=== PATIENT | male | born 1950 | race Two or more races ===

== ENCOUNTER 2024-10-03 08:15 | Emergency (ER) | payer MEDICARE, MEDICAID, SELFPAY ==
[2024-10-03 08:16] VITALS: BMI 41.3
[2024-10-03 08:23] VITALS: BP 135/61; PULSE 69; RESP 16; TEMP 36.7; O2SAT 96
--- NOTE | 2024-10-03 08:49 | EDNOTE_ITS ---
ED Skin Abcess FB-RME/HPI General Chief complaint: Skin/Abscess/Foreign Body Stated complaint: RASH/ITCHING BUE & ABD Time Seen by Provider: 10/03/24 08:35 Arrival date/time: 10/03/24 08:15 74 year old male present to emergency room with c/o of itchy rash back, arm/labs and abdominal for 1 day. pt report possible got a reaction after cutting down a tree. LOCATION: back, abd, extremities SEVERITY: Symptoms are described as being severe with limitations on activities of daily living QUALITY: Symptoms are described as being dull or achy CONTEXT: The patient is unable to identify any inciting events. DURATION/TIMING: The symptoms started approximately one day ago and have been constant this then, and have been progressive getting worse. ASSOCIATED SYMPTOMS: The patient is unable to identify any other associated symptoms. MODIFYING FACTORS: The patient is unable to identify any alleviating or aggr avating symptoms. PERTINENT ROS: denies IVDU], [states no immunocompromising condition, denies any penetrating trauma, no fever, no unexplained nausea or vomiting, no headache, no chest pain REVIEW OF SYSTEMS: See History of Present Illness - with the exception of those mentioned in the history of present illness, all other systems reviewed and reported as negative GENERAL: In general the patient is awake, interactive, in an emergency department gurney. HEAD/EYES/EARS/NOSE/THROAT: normo-cephalic, atraumatic, mucus membranes are moist, anicteric, palpebral conjunctiva is pink, trachea is midline. CARDIOVASCULAR: regular rate and regular rhythm, no murmurs, heart sounds are not distant, strong pulses in all four extremities that are equal and symmetric bilateral upper and lower extremities, normal capillary refill. CHEST/PULMONARY: normal chest rise and fall, good air movement, clear to auscultation bilaterally, normal inspiratory to expiratory ratios without evidence of respiratory distress. NECK: No midline/Paraspinal tenderness, no step off ROM/Strenght intact No Kernig and bruzinski sign. No trauma ABDOMEN: soft, not tender, no masses appreciated BACK: normal range of motion without pain. NEUROLOGICAL: cranio-facial features are symmetric, moves all four extremities equally without obvious limitations or weakness. EXTREMITY: no tenderness to palpation over the long bones or large joints of the bilateral upper and lower extremities, no joint swelling, no joint erythema, no signs of trauma, no unilateral leg swelling and no peripheral edema. SKIN: warm, dry, well-perfused, no jaundice, + generalized hive like lesion on back, abd, upper and lower extremities no telangiectasias or petechia. PSYCH: calm, cooperative, no evidence of psychosis or agitation Related Data Previous Rx's ?Medication ?Instructions ?Recorded Sulfamethoxazole/Trimethoprim DS * 1 tab PO BID #20 ta bs 04/28/17 (BACTRIM DS *) loratadine 10 mg tablet (Claritin) 10 mg PO QDAY #20 t abs 10/03/24 prednisone 20 mg tablet 20 mg PO QDAY 3 days #3 tabs 10/03/24 Allergies Allergy/AdvReac Type Severity Reaction Status Date / Time codeine Allergy Mild SWELLS UP Verified 03/16/17 13:30 Penicillins Allergy Mild SWELLS UP Verified 03/16/17 13:30 Course Course Course Narrative: Patient presenting with urticaria.? The inciting event was likely plant .? Patient provided predisone 40mg, benadryl 25mg and pepcid 40mg? ?Following which, patient stated they felt improved.? Patient monitored for a period of 2 hours.? Discussed continuing benadryl treatments every?-6 hours.? Patient was prescribed an epipen.? Patient is to follow up with primary care provider to further discuss anaphylactic treatment and allergin testing as needed.? Return to clinic or emergency department urgently if new or worsening symptoms develop including oral swelling, difficulty breathing, chest pain, shortness of breath, worsening rash, headache, or other worrisome symptoms. ? ? Plan:?? claritin and predisone 20mg daily for 3 days, advised to check blood glucose since may increase levels. Prescribed medro dose astrid and educated Pt on indications for administration. Advised Pt on supportive therapies, including decreasing exposure to possible allergens, cold application, OTC ibuprofen as directed prn, and advancement of fluids as tolerated. Educated Pt on signs and symptoms of anaphylaxis and instructed her to report to ED should worrisome signs present.? Pt verbally expressed understanding and all questions were addressed to Pt's satisfaction. Quality Measures none Orders Category Date Time Status Blood glucose [Bedside Blood Glucose] NOW Care 10/03/24 08:36 Active DiphenhydrAMINE [Benadryl] Med 10/03/24 08:41 Discontinued 25 mg PO X1 ONE Famotidine [Pepcid] Med 10/03/24 08:41 Discontinued 40 mg PO X1 ONE predniSONE Med 10/03/24 08:41 Discontinued 40 mg PO X1 ONE Reevaluation(s) Reevaluation #1: pt is feeling better and comfortable to go home. Vital Signs Vital signs: Vital Signs Temperature 98.0 F 10/03/24 08:23 Pulse Rate 69 10/03/24 08:23 Respiratory Rate 16 10/03/24 08:23 Blood Pressure 135/61 H 10/03/24 08:23 Pulse Oximetry (%) 96 10/03/24 08:23 Oxygen Delivery Method Room Air 10/03/24 08:23 Skin / Abscess / Foreign Body Patient data External records reviewed:: [facility] previous records Clinical information provided by:: patient Social determinants that could affect healthcare access:: none Patient has the following chronic illnesses:: dm How is presenting disease/condition affected by chronic disease/condition?: uneffected by Evaluation data The following diagnostics were reviewed and interpreted by me:: other (specify) (n/a ) Lab and/or radiology exams considered but not ordered:: n/a Interpretation Summary: n/a Medications / Prescriptions Medications or Prescriptions considered but not ordered:: n/a Medication administrations:: Medication Administration History Discontinued Medications Diphenhydramine HCl (Diphenhydramine 25 Mg Capsule) 25 mg PO X1 ONE Stop: 10/03/24 08:42 Last Admin: 10/03/24 08:51 Dose: 25 mg Documented By: SHARYN Famotidine (Famotidine 20 Mg Tablet) 40 mg PO X1 ONE Stop: 10/03/24 08:42 Last Admin: 10/03/24 08:52 Dose: 40 mg Documented By: SHARYN Prednisone (Prednisone 20 Mg Tablet) 40 mg PO X1 ONE Stop: 10/03/24 08:42 Last Admin: 10/03/24 08:52 Dose: 40 mg Documented By: SHARYN as stated above Consultations Consultation(s) initiated? (list below): No Diagnosis Skin/Abscess Differential Diagnosis: urticaria, eczema and contact dermatitis Most likely diagnosis given after review of the tests above:: contact dermatitis/hives Admission Indicated Admission indicated?: not indicated Admission Request Was there a request for admission?: No Disposition Plan Disposition Plan: Discharge Discharge Attestation Discharge Attestation: The patient and all family members were given an opportunity to ask questions and understood the discharge instructions. Discharge instructions specifically effects, indications for sooner follow up or return to the emergency department, and the expected course of current diagnosis. Patient condition: Stable Discharge Plan Plan Patient Disposition: HOME (Self Care) Health Concerns: Follow with PMD as directed Take tylenol or motrin as need Return to ED if sx worsen check your blood glucose since prednisone may raise the level. Prescriptions/Referrals Prescriptions/Med Rec: New prednisone 20 mg tablet 20 mg PO QDAY 3 Days Qty: 3 0RF loratadine [Claritin] 10 mg tablet 10 mg PO QDAY Qty: 20 0RF No Action Sulfamethoxazole/Trimethoprim DS * (BACTRIM DS *) 1 TAB tablet 1 tab PO BID Qty: 20 0RF Referrals: Sheldon Mota MD [Primary Care Provider] - In 1 week Problem List Clinical Impression: Acute urticaria Patient/Caregiver Discharge Instructions Education Materials: ED Hives (Adult) Print Language: Swedish Stand Alone Forms: [facility] Award Info., Patient Portal Info Letter
[2024-10-03] MEDS: DiphenhydrAMINE 25 MG CAPSULE PO (08:51)
[2024-10-03] MEDS: FAMOTIDINE 20 MG TABLET 40 MG PO (08:52)
[2024-10-03] MEDS: predniSONE 20 MG TABLET 40 MG PO (08:52)
== END 2024-10-03 10:16 | disposition home or self-care (01) ==
PROVIDERS: Emergency Provider Emergency Medicine; PCP Internal Medicine
DX: L50.9 Urticaria, unspecified (principal)
CPT/HCPCS: 99282; J7512; A9270

== ENCOUNTER 2024-10-10 12:51 | Emergency (ER) | payer MEDICARE, MEDICAID, SELFPAY ==
--- NOTE | 2024-10-10 12:54 | EKG_ITS ---
[facility] Test Date: 2024-10-10 Pat Name: LOUIS OBRIEN Department: Room: - Gender: Male [employer]: : 1950 Requested By: ED Temporary Provider Order Number: [id number] Reading MD: ED Temporary Provider Measurements Intervals [place] Rate: 61 P: 28 WV: 160 QRS: 8 QRSD: 98 T: 29 QT: 335 QTc: 339 Interpretive Statements SINUS RHYTHM NONSPECIFIC T-WAVE ABNORMALITY Compared to ECG 04/20/2024 01:33:55 Intraventricular conduction delay no longer present T-wave abnormality still present /store/S0/[id number]/[id number].pdf
[2024-10-10 13:04] VITALS: BP 151/51; PULSE 64; RESP 22; TEMP 36.4; O2SAT 96; BMI 42.5
--- NOTE | 2024-10-10 13:16 | XR_ITS ---
EXAMINATION: CT head/brain wo con ORDERING PROVIDER: Victor M SALMERON), DOCTOR'S ASSISTANT HISTORY: headache TECHNIQUE: CT scanner was used in the volumetric, helical non-contrast acquisition of the head with 2-D and 3-D reformats created on a separate workstation and submitted for interpretation. Institutional dose reducing protocols were utilized. RADIATION DOSE: DLP 1094 mGy-cm COMPARISON: 04/20/2024, CT head. FINDINGS: BRAIN: No acute intracranial hemorrhage, mass effect, or midline shift. TRAYLOR-WHITE DIFFERENTIATION: Scattered periventricular and subcortical white matter hypodensities, likely chronic small vessel ischemic changes. EXTRA-AXIAL SPACES: No abnormal collection. SULCI: Normal. VENTRICLES: Normal. BASAL CISTERNS: Normal. VESSELS: No hyperdense vessel sign. DURAL VENOUS SINUSES: Symmetric attenuation. POSTERIOR FOSSA: Normal. MASTOID AIR CELLS: Clear. PARANASAL SINUSES: Mild frontal maxillary mucosal thickening. ORBITS: Normal. BONES: Normal. SCALP: Normal. IMPRESSION: No acute intracranial hemorrhage, mass effect, or midline shift.
--- NOTE | 2024-10-10 13:16 | XR_ITS ---
EXAMINATION: XR chest 1V portable ORDERING PROVIDER: Victor M Brooks (FISH FROG OR OYSTER FARMER), FISH FROG OR OYSTER FARMER HISTORY: sob TECHNIQUE: Single portable AP radiograph of the chest. COMPARISON: 04/20/2024, chest radiographs. FINDINGS: Lines and Tubes: None. Lungs: Clear. Pleura: No pneumothorax or pleural effusion. Cardiomediastinal Silhouette: Mild cardiomegaly. Post CABG changes. Soft Tissues/Bones: Post-CABG changes. Mild bony degenerative changes. IMPRESSION: No acute pulmonary findings.
--- NOTE | 2024-10-10 13:26 | PD.EDRME ---
Rapid Medical Screening Exam RME Arrival date/time: 10/10/24 12:51 74-year-old male presents Emergency Department today complaints of dizziness and weakness Chief Complaint: Arrhythmia/Palpitations Vital signs: Vital Signs Temperature 97.6 F 10/10/24 13:04 Pulse Rate 64 10/10/24 13:04 Respiratory Rate 22 H 10/10/24 13:04 Blood Pressure 151/51 H 10/10/24 13:04 Pulse Oximetry (%) 96 10/10/24 13:04 Oxygen Delivery Method Room Air 10/10/24 13:04
[2024-10-10 13:52] LABS: Basophils # (Auto) 0.1 Thou/mm3 (0.0-0.2); Basophils % (Auto) 1 % (0-2.5); Eosinophils # (Auto) 0.2 Thou/mm3 (0.0-0.5); Eosinophils % (Auto) 2 % (0-10); Hematocrit 42.9 % (41.0-53.0); Hemoglobin 15.3 g/dL (13.5-16.0); Immature Granulocytes % (Auto) 1 % (0-0); Immature Granulocytes Auto 0.08 Thou/mm3 (0.00-0.00); Lymphocytes # (Auto) 2.9 Thou/mm3 (1.0-4.8); Lymphocytes % (Auto) 31 % (10-50); Mean Corpuscular HGB Conc 35.7 g/dl (31.0-37.0); Mean Corpuscular Hemoglobin 35.5 pg (25.0-35.0); Mean Corpuscular Volume 100 fL (80-100); Monocytes # (Auto) 0.9 Thou/mm3 (0.0-0.8); Monocytes % (Auto) 9 % (0-12); Neutrophils # (Auto) 5.2 Thou/mm3 (1.8-7.7); Neutrophils % (Auto) 55 % (37-80); Nucleated Red Blood Cell % 0 /100 WBC (0); Platelet Count 112 Thou/mm3 (140-440); RDW Standard Deviation 56.1 fL (35.1-43.9); Red Blood Count 4.31 Miln/mm3 (4.50-5.90); White Blood Count 9.3 Thou/mm3 (3.8-10.6)
[2024-10-10 13:58] LABS: INR 1.3 (0.9-1.3); Partial Thromboplastin Time 23.7 Seconds (22.0-36.0); Prothrombin Time 13.9 Seconds (9.0-12.2)
[2024-10-10 14:01] LABS: B-Type Natriuretic Peptide < 20 pg/mL (0-100)
[2024-10-10 14:02] LABS: Alanine Aminotransferase 66 U/L (10-49); Albumin, Serum 3.5 gm/dL (3.4-4.8); Albumin/Globulin Ratio 1.2 (1.2-2.2); Alkaline Phosphatase 104 U/L (46-116); Anion Gap 9 (7-16); Aspartate Amino Transferase 54 U/L (0-34); BUN/Creatinine Ratio 20 Ratio (12-20); Bilirubin,Total 2.1 mg/dL (0.3-1.2); Blood Urea Nitrogen 14 mg/dL (9-23); Calcium 8.9 mg/dL (8.3-10.6); Calcium (Corrected) 9.3 mg/dL (8.5-10.1); Carbon Dioxide 23.4 mMol/L (20.0-31.0); Chloride 108 mMol/L (98-107); Creatinine (Component) 0.7 mg/dL (0.6-1.3); Estimated Creatinine Clearance 93.8 mL/min (>60); Glucose 136 mg/dL (74-106); Magnesium 1.9 mg/dL (1.6-2.6); Osmolality,Calculated 281 (275-295); Potassium 3.7 mMol/L (3.4-5.1); Sodium 140 mMol/L (136-145); Total Protein 6.5 gm/dL (5.7-8.2); Troponin I < 0.020 ng/mL (0.0-0.045); eGFR > 60 See Note
[2024-10-10 15:13] VITALS: BP 148/60; PULSE 68; RESP 20; TEMP 36.4; O2SAT 95
--- NOTE | 2024-10-10 15:23 | EDNOTE_ITS ---
ED Arrhythmia Palp. RME/HPI General Chief Complaint: Arrhythmia/Palpitations Stated Complaint: HEART PALPITATIONS AND DIZZINESSS FOR AN HOUR Time Seen by Provider: 10/10/24 15:08 Arrival date/time: 10/10/24 12:51 This is a 74-year-old male that comes into the emergency room with complaints of dizziness and chest pain and shortness of breath. Patient reports having a lot of issues with his roommates. Patient reports being stressed out. Patient denies any complaints by the time he came to his room. Patient no longer having dizziness, chest pain, shortness of breath. Patient does have a history of open heart surgery approximately 5 years ago.. Patient reports a history of obesity, diabetes, high blood pressure. RME / HPI RME / HPI narrative: 10/10/24 12:51 74-year-old male presents Emergency Department today complaints of dizziness and weakness Related Data Previous Rx's ?Medication ?Instructions ?Recorded Sulfamethoxazole/Trimethoprim DS * 1 tab PO BID #20 ta bs 04/28/17 (BACTRIM DS *) loratadine 10 mg tablet (Claritin) 10 mg PO QDAY #20 t abs 10/03/24 Allergies Allergy/AdvReac Type Severity Reaction Status Date / Time codeine Allergy Mild SWELLS UP Verified 10/10/24 12:52 Penicillins Allergy Mild SWELLS UP Verified 10/10/24 12:52 Review of Systems Review of Systems Systems Reviewed: All systems reviewed, normal except as documented Past Medical History Past Medical History CARDIAC: Negative Congestive Heart Failure RESPIRATORY: Negative Chronic Obstructive Pulmonary Disease (COPD) GENITOURINARY: Negative Renal Disease ENDOCRINE: Negative Diabetes Mellitus Type 1 or Diabetes Mellitus Type 2 Social History SMOKING STATUS: Never smoker ED Exam General General appearance: Present alert and in no apparent distress Head Head exam: Present atraumatic Eye Eye exam: Present normal appearance, PERRL and EOMI ENT ENT exam: Present normal exam, normal oropharynx and mucous membranes moist Neck Neck exam: Present normal inspection, full ROM and trachea midline Chest Chest inspection: Present normal inspection and symmetric chest wall rise Respiratory Respiratory exam: Present normal lung sounds bilaterally Cardiovascular Cardiovascular exam: Present regular rate, normal rhythm and normal heart sounds Abdominal Exam Abdominal exam: Present soft Extremities Exam Extremities exam: Present normal inspection and full ROM Back Exam Back exam: Present normal inspection and full ROM Neurological Exam Neurological exam: Present alert, oriented X3 and CN II-XII intact Psychiatric Psychiatric exam: Present normal affect and normal mood Skin Skin exam: Present warm, dry, intact and normal color Course Quality Measures none Orders Category Date Time Status EKG (ED ONLY) *Do not use* NOW Care 10/10/24 12:[address] head/brain wo con Stat Exams 10/10/24 13:16 Completed EKG (ED Only) Stat Exams 10/10/24 12:54 Draft XR chest 1V portable Stat Exams 10/10/24 13:16 Completed B-Type Natriuretic Peptide Stat Lab 10/10/24 13:35 Completed CBC Stat Lab 10/10/24 13:35 Completed Comprehensive Metabolic Panel Stat Lab 10/10/24 13:35 Completed Drug Screen,Urine Stat Lab 10/10/24 13:16 Ordered Magnesium Stat Lab 10/10/24 13:35 Completed Partial Thromboplastin Time Stat Lab 10/10/24 13:35 Completed Prothrombin Time with INR Stat Lab 10/10/24 13:35 Completed Troponin I Stat Lab 10/10/24 13:35 Completed Urinalysis Stat Lab 10/10/24 13:16 Ordered Vital Signs Vital signs: Vital Signs Temperature 97.6 F 10/10/24 13:04 Pulse Rate 64 10/10/24 13:04 Respiratory Rate 22 H 10/10/24 13:04 Blood Pressure 151/51 H 10/10/24 13:04 Pulse Oximetry (%) 96 10/10/24 13:04 Oxygen Delivery Method Room Air 10/10/24 13:04 Procedures -ED EKG Interpretation #1: Date of EK10/10/24 Time of EK:04 Rate: 61 Interpretation: Interpreted by me (Sinus rhythm. Flattening of the T waves in lead III and aVF) EKG Impression: No ectopy, Normal QRS and Normal intervals Additional EKG comment: No change from previous EKG Arrhythmia/Palpitations MDM Narrative MDM Narrative:: chest x raY: FINDINGS: Lines and Tubes: None. Lungs: Clear. Pleura: No pneumothorax or pleural effusion. Cardiomediastinal Silhouette: Mild cardiomegaly. Post CABG changes. Soft Tissues/Bones: Post-CABG changes. Mild bony degenerative changes. IMPRESSION: No acute pulmonary findings. CT head: FINDINGS: BRAIN: No acute intracranial hemorrhage, mass effect, or midline shift. TRAYLOR-WHITE DIFFERENTIATION: Scattered periventricular and subcortical white matter hypodensities, likely chronic small vessel ischemic changes. EXTRA-AXIAL SPACES: No abnormal collection. SULCI: Normal. VENTRICLES: Normal. BASAL CISTERNS: Normal. VESSELS: No hyperdense vessel sign. DURAL VENOUS SINUSES: Symmetric attenuation. POSTERIOR FOSSA: Normal. MASTOID AIR CELLS: Clear. PARANASAL SINUSES: Mild frontal maxillary mucosal thickening. ORBITS: Normal. BONES: Normal. SCALP: Normal. IMPRESSION: No acute intracranial hemorrhage, mass effect, or midline shift. Patient able to ambulate throughout the entire department with no issues. Patient denies any dizziness, chest pain, shortness of breath. Patient does report that he has been having a lot of stress especially with his roommates. Patient feeling better at this time. Family at bedside, niece states that they are currently working on getting him different housing. Patient is hypertensive but does take medication at home. Instructed patient to take his medications that he is supposed to take at home when he gets home. Patient CBC unremarkable coags unremarkable patient's be MP unremarkable liver enzymes slightly elevated AST of 54 ALT of 66, total bilirubin 2.1. Patient not having abdominal pain and has no pain to palpation. Troponin was done twice while he has been in the emergency room and both have been negative BNP is less than 20 urine unremarkable drug screen unremarkable chest x-ray and CT head unremarkable. I explained to patient that I am going to discharge him home. Patient comfortable plan of care. Patient data External records reviewed:: [facility] previous records Clinical information provided by:: patient Social determinants that could affect healthcare access:: none Patient has the following chronic illnesses:: none How is presenting disease/condition affected by chronic disease/condition?: uneffected by Evaluation data The following diagnostics were reviewed and interpreted by me:: lab results, radiology exam(s) and EKG tracing(s) Lab and/or radiology exams considered but not ordered:: none Interpretation Summary: see note Medications / Prescriptions Medications or Prescriptions considered but not ordered:: none Medication administrations:: see note Consultations Consultation(s) initiated? (list below): No Diagnosis Most likely diagnosis given after review of the tests above:: dizziness Admission Indicated Admission indicated?: not indicated Admission Request Was there a request for admission?: No Disposition Plan Disposition Plan: Discharge Discharge Attestation Discharge Attestation: The patient and all family members were given an opportunity to ask questions and understood the discharge instructions. Discharge instructions specifically effects, indications for sooner follow up or return to the emergency department, and the expected course of current diagnosis. Patient condition: Stable Discharge Plan Plan Patient Disposition: HOME (Self Care) Patient condition on transfer: Stable Prescriptions/Referrals Prescriptions/Med Rec: No Action Sulfamethoxazole/Trimethoprim DS * (BACTRIM DS *) 1 TAB tablet 1 tab PO BID Qty: 20 0RF loratadine [Claritin] 10 mg tablet 10 mg PO QDAY Qty: 20 0RF Referrals: Sheldon Mota MD [Primary Care Provider] - In 1 week Problem List Clinical Impression: Chest pain, Anxiety Patient/Caregiver Discharge Instructions Discharge Activity: activity as tolerated Education Materials: ED Anxiety Reaction Additional Instructions: Follow-up with primary provider in 1 to 2 days. Come back to the emergency room if symptoms change or worsen. Print Language: Lebanese Stand Alone Forms: [facility] Award Info., Patient Portal Info Letter PA/RON Supervising Physician PA/RON Supervising Physician: [email or web address]
[2024-10-10 16:06] VITALS: BP 166/68; PULSE 83; RESP 18; O2SAT 96
[2024-10-10 16:22] LABS: Collection Type, Urine Clean Catch
[2024-10-10 16:34] LABS: Amphetamine/Methamp Scrn,U Negative (Negative); Barbiturate Screen,Urine Negative (Negative); Benzodiazepines Screen,Urine Negative (Negative); Benzoylecgonine Screen, Ur Negative (Negative); Fentanyl Screen,Urine Negative (Negative); Opiate Screen,Urine Negative (Negative); THC Screen,Urine Negative (Negative)
[2024-10-10 16:35] LABS: Bilirubin,Urine Negative (Negative); Blood,Urine Negative (Negative); Clarity,Urine Clear (Clear/Hazy); Color,Urine Yellow (Lt Yel-Yel); Glucose, Urine 1+ (Negative); Ketones,Urine Negative (Negative); Leukocyte Esterase,Urine Negative (Negative); Nitrite,Urine Negative (Negative); PH,Urine 6.5 (5.0-7.0); Protein,Urine Trace (Neg - Trace); RBC,Urine 1 /hpf (0-3); Specific Gravity,Urine 1.028 (1.001-1.035); Squamous Epithelial Cell,Urine 1 /hpf (0-5); WBC,Urine < 1 /hpf (0-5)
[2024-10-10 17:00] LABS: Troponin I < 0.020 ng/mL (0.0-0.045)
[2024-10-10 17:14] VITALS: BP 148/88; PULSE 88; RESP 16; O2SAT 98
== END 2024-10-10 17:16 | disposition home or self-care (01) ==
PROVIDERS: Nurse Practitioner Family; Nurse Practitioner Primary Care; Emergency Provider Emergency Medicine; PCP Internal Medicine
DX: R07.9 Chest pain, unspecified (principal); F41.9 Anxiety disorder, unspecified; E11.9 Type 2 diabetes mellitus without complications; E66.9 Obesity, unspecified; Z68.41 Body mass index [BMI] 40.0-44.9, adult
CPT/HCPCS: 36415; 70450; 71045; 80053; 80307; 81001; 83735; 83880; 84484; 85025; 85610; 85730; 93005; 99284